=== PATIENT | female | born 1985 | race Two or more races ===

== ENCOUNTER 2023-05-19 13:24 | Emergency (ER) | payer BC ==
[~2023-05-19] VITALS: Ht 175.3 cm; Wt 113.4 kg
[2023-05-19] MEDS ORDERED: HALOPERIDOL LACTATE INJ 5 MG/ML VIAL ONE (13:41)
[2023-05-19] MEDS ORDERED: MIDAZOLAM HCL 5 MG/5ML VIAL ONE ×2 (13:41→14:25)
[2023-05-19] MEDS: MIDAZOLAM HCL 2 MG/2ML VIAL IM ONE ×2 (13:48→14:30)
[2023-05-19] MEDS: HALOPERIDOL LACTATE INJ 5 MG/ML VIAL IM ONE (13:48)
[2023-05-19] MEDS ORDERED: diphenhydrAMINE HCL 50 MG/ML VIAL ONE (14:24)
[2023-05-19] MEDS: diphenhydrAMINE HCL 50 MG/ML VIAL IM ONE (14:30)
[2023-05-19 14:57] LABS: BASOPHILS % (AUTO) 0.8 % (0.0-2.0); EOSINOPHILS # (AUTO) 0.1 K/uL (0.0-0.7); EOSINOPHILS % (AUTO) 2.6 % (0.0-6.0); HEMATOCRIT 36 % (33-45); HEMOGLOBIN 11.8 g/dL (11.5-14.8); LYMPHOCYTES # (AUTO) 0.8 K/uL (0.8-4.8); LYMPHOCYTES % (AUTO) 18.4 % (20.0-44.0); MEAN CORPUSCULAR HEMOGLOBIN 31 PG (26.0-33.0); MEAN CORPUSCULAR HGB CONC 33 g/dl (31.0-36.0); MEAN CORPUSCULAR VOLUME 92 fL (82-100); MONOCYTES # (AUTO) 0.3 K/uL (0.1-1.30); MONOCYTES % (AUTO) 7.2 % (2.0-12.0); NEUTROPHILS # (AUTO) 3.1 K/uL (1.8-8.9); PLATELET COUNT (AUTO) 224 K/uL (150-450); RED BLOOD CELL COUNT(AUTO) 3.86 MIL/uL (4.0-5.2); RED CELL DISTRIBUTION WIDTH 13.9 % (11.5-15.0); WHITE BLOOD COUNT (AUTO) 4.3 K/uL (4.3-11.0)
[2023-05-19 15:05] LABS: CALCIUM, SERUM 9.1 mg/dL (8.5-10.1); CARBON DIOXIDE 24 mmol/L (21-32); CHLORIDE 106 mmol/L (98-107); CREATININE 0.9 mg/dL (0.6-1.3); GLUCOSE 91 mg/dL (74-106); POTASSIUM 3.6 mmol/L (3.5-5.1); SODIUM SERUM 137 mmol/L (136-145); UREA NITROGEN, BLOOD 10 mg/dL (7-18)
[2023-05-19 15:22] LABS: ACETAMINOPHEN <10 ug/ml (10-30); ALANINE AMINOTRANSFERASE 15 U/L (12-78); ALBUMIN 3.6 g/dL (3.4-5.0); ALCOHOL, BLOOD < 3 mg/dL (0-10); ALKALINE PHOSPHATASE 64 U/L (46-116); ASPARTATE AMINOTRANSFERASE 16 U/L (15-37); BILIRUBIN,DIRECT 0.2 mg/dL (0.0-0.2); BILIRUBIN,TOTAL 1.1 mg/dL (0.2-1.0); SALICYLATE < 0.2 mg/dL (2.8-20.0); TOTAL PROTEIN, SERUM 7.3 g/dL (6.4-8.2)
[2023-05-19 17:39] LABS: APPEARANCE,URINE SLIGHTLY CLOUDY (CLEAR); BILIRUBIN,URINE 2+ (NEGATIVE); BLOOD, URINE 1+ Ery/uL (NEGATIVE); COLOR,URINE YELLOW (YELLOW); KETONES,URINE 2+ mg/dL (NEGATIVE); LEUKOCYTE ESTERASE ,URINE NEGATIVE (NEGATIVE); NITRITE, URINE POSITIVE (NEGATIVE); PH,URINE 5.5 (5.0-8.0); PROTEIN,URINE TRACE mg/dl (NEGATIVE); UGLUCOSE NEGATIVE (NEGATIVE)
[2023-05-19 17:44] LABS: PREGNANCY TEST URINE QUAL NEGATIVE (NEGATIVE)
[2023-05-19 17:54] LABS: ADD URINE CULTURE YES; BACTERIA,URINE 2+ /HPF (None Seen)
[2023-05-19 18:06] VITALS: BP 141/79; TEMP 97.4; O2SAT 99
[2023-05-19 19:50] LABS: AMPHETAMINE, URINE NEGATIVE (NEGATIVE); BARBITURATE, URINE NEGATIVE (NEGATIVE); COCCAINE, URINE NEGATIVE (NEGATIVE); OPIATE, URINE NEGATIVE (NEGATIVE); PHENCYCLIDINE SCREEN,URINE NEGATIVE (NEGATIVE)
[2023-05-19 20:21] LABS: BENZODIAZEPINE, URINE POSITIVE (NEGATIVE); CANNABINOID, URINE POSITIVE (NEGATIVE)
[2023-05-19] MEDS ORDERED: LORAZEPAM INJ 2 MG/ML VIAL ONE (21:59)
[2023-05-19] MEDS ORDERED: OLANZAPINE 10 MG VIAL IM ONE (21:59)
[2023-05-19] MEDS: LORAZEPAM INJ 2 MG/ML VIAL IM ONE (22:05)
[2023-05-19] MEDS: OLANZAPINE 10 MG VIAL IM ONE (22:05)
== END 2023-05-20 03:50 ==
LOC: ER 13:32
DX: F31.9 Bipolar disorder, unspecified (principal); R45.1 Restlessness and agitation; R10.2 Pelvic and perineal pain; Z20.822 Contact with and (suspected) exposure to COVID-19
CPT/HCPCS: 99285; 96372 ×2; 85025; 80048; 87086; 80076; 84703; 81001; 36415; 80178; 87426; 80143; 80320; 80307; J2060; J1200; J1630; J2250 ×2; J3490; G0480